=== PATIENT | female | born 1980 | race Caucasian/White ===

== ENCOUNTER 2025-03-26 13:56 | Outpatient (CLI) | payer MEDICAID, SELFPAY ==
--- NOTE | 2025-03-26 14:25 | XRR_ITS ---
PROCEDURE INFORMATION: Exam: XR Pelvis Exam date and time: 03/26/2025 2:51 PM Age: 44 years old Clinical indication: Pelvic pain; Prior surgery; Surgery date: 6+ months; Surgery type: Hysterectomy, HX of ovarian cancer; Additional info: Hip pain TECHNIQUE: Imaging protocol: Radiologic exam of the pelvis. Views: 1 or 2 view. COMPARISON: CR XR lumbar spine 2-3V* [id number] 03/26/2025 2:51 PM FINDINGS: Bones/joints: No acute osseous abnormality. Soft tissues: Unremarkable. XR/XR pelvis min 3V [id number] IMPRESSION: No acute osseous abnormality.
--- NOTE | 2025-03-26 14:25 | XRR_ITS ---
PROCEDURE INFORMATION: Exam: XR Lumbosacral Spine Exam date and time: 03/26/2025 2:51 PM Age: 44 years old Clinical indication: Low back pain; HX of ovarian cancer; Additional info: Lumbar disc degeneration TECHNIQUE: Imaging protocol: Radiologic exam of the lumbosacral spine. Views: 2 or 3 views. COMPARISON: CR XR pelvis min 3V [id number] 03/26/2025 2:51 PM FINDINGS: Bones/joints: No fracture or facet subluxation. Soft tissues: Unremarkable. XR/XR lumbar spine 2-3V* [id number] IMPRESSION: No acute findings.
--- NOTE | 2025-03-26 14:44 | XRR_ITS ---
PROCEDURE INFORMATION: Exam: XR Right Knee Exam date and time: 03/26/2025 2:51 PM Age: 44 years old Clinical indication: Pain; Knee; Bilateral; Additional info: Bilateral knee osteoarthritis TECHNIQUE: Imaging protocol: Radiologic exam of the right knee. Views: 1 or 2 views. COMPARISON: No relevant prior studies available. FINDINGS: Bones/joints: There is no fracture or joint dislocation. Bony alignment is preserved. Soft tissues: Normal. XR/XR knee RT 1-2V [id number] IMPRESSION: No acute findings.
--- NOTE | 2025-03-26 14:45 | XRR_ITS ---
PROCEDURE INFORMATION: Exam: XR Left Knee Exam date and time: 03/26/2025 2:51 PM Age: 44 years old Clinical indication: Pain; Knee; Bilateral; HX ov ovarian cancer; Additional info: Bilateral knee osteoarthritis, TECHNIQUE: Imaging protocol: Radiologic exam of the left knee. Views: 1 or 2 views. COMPARISON: No relevant prior studies available. FINDINGS: Bones/joints: There is no fracture or joint dislocation. Bony alignment is preserved. Soft tissues: Normal. XR/XR knee LT 1-2V [id number] IMPRESSION: No acute findings.
== END 2025-03-26 13:57 | disposition home or self-care (01) ==
PROVIDERS: PCP Internal Medicine; Visit Provider Internal Medicine
DX: M25.559 Pain in unspecified hip (principal); M51.369 Other intervertebral disc degeneration, lumbar region without mention of lumbar back pain or lower extremity pain
CPT/HCPCS: 72100; 72190; 73560